=== PATIENT | female | born 1950 | race Asian ===

== ENCOUNTER 2020-10-12 10:38 | Emergency (ER) | payer MEDICARE, OTHER ==
[~2020-10-12] VITALS: Ht 152.4 cm; Wt 62.1 kg
[2020-10-12] MEDS ORDERED: cloNIDine HCL 0.1 MG TAB ONE (10:59)
[2020-10-12] MEDS ORDERED: cloNIDine HCL 0.1 MG TAB PO ONE (11:15)
[2020-10-12 11:24] LABS: Basophils # (auto) 0.1 10 ^3/uL (0-0.2); Basophils % (auto) 0.6 % (0.0-2.0); Eosinophils # (auto) 0.4 10 ^3/uL (0-0.8); Eosinophils % (auto) 5.1 % (0.0-7.0); Hematocrit 45.7 % (36.0-46.0); Hemoglobin 15.4 g/dL (12.2-16.2); Lymphocytes # (auto) 2.5 10 ^3/uL (0.4-5.4); Lymphocytes % (auto) 30.8 % (10.0-50.0); Mean Corpuscular Hemoglobin 31.9 pg (28.0-32.0); Mean Corpuscular Hgb Conc. 33.7 g/dL (32.0-36.0); Mean Corpuscular Volume 94.4 fL (80.0-100.0); Monocytes # (auto) 0.5 10 ^3/uL (0-1.3); Monocytes % (auto) 5.9 % (0.0-12.0); Neutrophils # (auto) 4.6 10 ^3/uL (1.6-8.6); Neutrophils % (auto) 57.6 % (37.0-80.0); Nucleated Red Blood Cells % 0.1 %; Platelet Count (auto) 223 10^3/uL (140-450); Red Blood Cells 4.83 10^6/uL (4.0-5.20); Red Cell Distribution Width 12.5 % (11.8-14.3)
[2020-10-12 11:32] LABS: Urine Bacteria FEW /hpf (None Seen); Urine Blood Negative /uL (Negative); Urine Specific Gravity 1.003 (1.001-1.035); Urine WBC None Seen /hpf (0 - 5)
[2020-10-12 12:53] LABS: Alanine Aminotransferase 62 U/L (13-56); Albumin 4.3 g/dL (3.4-5.0); Alkaline Phosphatase 73 U/L (45-117); Anion Gap 5 (5-15); Aspartate Aminotransferase 38 U/L (15-37); Bilirubin, Total 0.5 mg/dL (0.2-1.0); Blood Urea Nitrogen 11 mg/dL (7-18); Carbon Dioxide 26 mmol/L (21-32); Chloride 107 mmol/L (98-107); GFR African American 78 mL/min; GFR Non-African American 65 mL/min; Glucose 114 mg/dL (74-106); Potassium 3.8 mmol/L (3.5-5.1); Sodium 138 mmol/L (136-145); Total Protein 9.6 g/dL (6.4-8.2)
[2020-10-12 18:03] VITALS: BP 144/91
== END 2020-10-12 14:21 | disposition home or self-care (01) ==
LOC: ER 10:38
DX: I16.0 Hypertensive urgency (principal); I10 Essential (primary) hypertension; H11.31 Conjunctival hemorrhage, right eye
CPT/HCPCS: 36415; 70450; 71046; 80053; 81001; 84484; 85025